=== PATIENT | female | born 1950 | race Asian ===

== ENCOUNTER 2025-09-02 22:43 | Emergency (ER) | payer MEDICARE ==
[~2025-09-02] VITALS: Ht 165.1 cm; Wt 65.9 kg
[2025-09-02 23:16] LABS: PLATELET COUNT (AUTO) 221 K/uL (150-450); RED BLOOD CELL COUNT(AUTO) 4.78 MIL/uL (4.00-5.20); RED CELL DISTRIBUTION WIDTH 13.5 % (11.5-14.5); WHITE BLOOD COUNT (AUTO) 10.1 K/uL (4.5-11.0)
[2025-09-02 23:25] LABS: CALCIUM, TOTAL 9.7 mg/dL (8.8-10.5); CREATININE 0.88 mg/dL (0.60-1.30); GLOMERULAR FILTR. RATE CALC > 60 mL/min (>60); GLUCOSE,RANDOM 113 mg/dL (70-110); SODIUM SERUM 140 mmol/L (136-145); UREA NITROGEN, BLOOD 16 mg/dL (7-18)
[2025-09-02 23:29] VITALS: TEMP 97.9
[2025-09-02 23:34] LABS: TROPONIN I-HIGH SENSITIVITY 8 ng/L (<51)
[2025-09-03 00:07] LABS: APPEARANCE,URINE CLEAR (CLEAR); GLUCOSE, URINE (UA) NEGATIVE (NEGATIVE); LEUKOCYTE ESTERASE ,URINE SMALL (NEGATIVE); NITRATE,URINE NEGATIVE (NEGATIVE); OCCULT BLOOD,URINE NEGATIVE (NEGATIVE); SPECIFIC GRAVITIY, URINE 1.010 (1.003-1.030)
[2025-09-03 00:16] LABS: SQUAMOUS EPITHELIAL CELL,UR Few /LPF (None Seen)
[2025-09-03] MEDS: PB/HYOSCY/ATR/SCOP/LIDO/MAALOX 55 ML BOTTLE PO ONE (00:23)
[2025-09-03] MEDS ORDERED: PANT-31 PO (01:09)
[2025-09-03] MEDS: PANTOPRAZOLE SODIUM 40 MG DR TABLET PO ONE (01:19)
[2025-09-03 01:23] VITALS: BP 152/94; PULSE 98; RESP 18; O2SAT 97
== END 2025-09-03 01:25 | disposition home or self-care (01) ==
LOC: EMS 22:43
DX: K21.9 Gastro-esophageal reflux disease without esophagitis (principal); R10.13 Epigastric pain
CPT/HCPCS: 71045; 80048; 81001; 83880; 84484; 85025; 85610; 85730; 93005; 99285; 36415-L1; 36415-TC